=== PATIENT | female | born 1995 | race Two or more races ===

== ENCOUNTER 2018-10-25 19:17 | Emergency (ER) | payer OTHER ==
[~2018-10-25] VITALS: Ht 162.6 cm; Wt 63.5 kg
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
[2018-10-25] MEDS ORDERED: KETOROLAC TROMETHAMINE INJ 30 MG/ML VIAL ONE (19:57)
[2018-10-25] MEDS ORDERED: DIAZEPAM 5 MG TABLET ONE (19:58)
[2018-10-25] MEDS ORDERED: DIAZEPAM 10 MG TABLET PO ONE (20:00)
[2018-10-25] MEDS ORDERED: KETOROLAC TROMETHAMINE INJ 60 MG/2 ML VIAL IM ONE (20:00)
--- NOTE | 2018-10-25 20:00 | NUR ---
Xray in progress
--- NOTE | 2018-10-25 20:40 | NUR ---
Pt assisted to the BR to void, urine sample collected and sent to lab.
[2018-10-25 21:09] LABS: BILIRUBIN,URINE NEGATIVE (NEGATIVE); BLOOD, URINE 1+ Ery/uL (NEGATIVE); KETONES,URINE NEGATIVE (NEGATIVE); LEUKOCYTE ESTERASE ,URINE NEGATIVE (NEGATIVE); NITRITE, URINE POSITIVE (NEGATIVE); PROTEIN,URINE NEGATIVE (NEGATIVE); UGLUCOSE NEGATIVE (NEGATIVE); UROBILINOGEN,URINE 0.2 EU/dL (0.2)
[2018-10-25 21:14] LABS: APPEARANCE,URINE SLIGHTLY HAZY (CLEAR); COLOR,URINE STRAW (YELLOW)
--- NOTE | 2018-10-25 21:35 | NUR ---
Pt is sleeping but arousable. Family at BS.
[2018-10-25 21:41] LABS: SQUAMOUS EPITHELIAL CELL,UR Many /HPF (None Seen)
[2018-10-25 21:42] LABS: BACTERIA,URINE Many /HPF (None Seen)
[2018-10-25 21:43] LABS: WBC,URINE 0-2 /HPF (0-3)
[2018-10-25 21:53] VITALS: BP 118/68
--- NOTE | 2018-10-25 21:54 | NUR ---
Patient discharged to home in stable condition. Written and verbal after care instructions and prescription given. Patient verbalizes understanding of instruction. Pt ambulatory with a steady gait
== END 2018-10-25 21:55 | disposition home or self-care (01) ==
LOC: ER 19:20
DX: S39.012A Strain of muscle, fascia and tendon of lower back, initial encounter (principal); S29.012A Strain of muscle and tendon of back wall of thorax, initial encounter; N39.0 Urinary tract infection, site not specified; Z98.890 Other specified postprocedural states; V49.49XA Driver injured in collision with other motor vehicles in traffic accident, initial encounter; Y93.89 Activity, other specified; Y92.413 State road as the place of occurrence of the external cause; Y99.8 Other external cause status
CPT/HCPCS: 71045; 72110; 72170; 81001; 84703; 87086; 87186; 96372; 99284; A4606; J1885; Z7610; 81000-TC